=== PATIENT | born 1965 ===

== ENCOUNTER 2025-02-27 18:15 | Outpatient (REF) | payer SELFPAY ==
[2025-02-27 19:37] LABS: Glucose Negative
[2025-02-27 19:49] LABS: WBC 20-50 HPF
== END 2025-02-27 18:16 | disposition home or self-care (01) ==
LOC: LBN 18:15
PROVIDERS: Visit Provider Family Medicine
DX: N39.46 Mixed incontinence (principal); Z46.6 Encounter for fitting and adjustment of urinary device
CPT/HCPCS: 87077; 81003; 81015; 87086; 87186